=== PATIENT | female | born 1980 | race Caucasian/White ===

== ENCOUNTER → 2017-03-04 | Day surgery (SDC) | payer OTHER ==
[~2017-03-04] VITALS: Ht 167.6 cm; Wt 120.7 kg
[~2017-03-04] MED LIST: AMBIEN5 M1 PO; ATIVAN0.5 M1 PO; ATROVENT HFA12.9 GM; DEXILANT60 M1 PO; ESTROGEN PATCH; FERROUS SULFAT325 M3 PO; FLONASE ALLERG9.9 ML; JENTADUETO XR1 EACH PO; LEVEMIR100 UNIT/1; LITHIUM CARBON300 M5 PO; LYRICA200 M1 PO; MINIPRESS1 MG PO; PATADAY2.5 ML OPH; SEROQUEL XR150 M1 PO; SIMVASTATIN5 M2 PO; SINGULAIR10 M1 PO; SYMBICORT 16010.2 GM INH; TOPROL XL50 M1 PO; VRAYLAR3 MG PO; ZANTAC150 M1 PO
== END ==
LOC: STS 01:37
DX: R35.0 Frequency of micturition (principal)
CPT/HCPCS: J0690

== ENCOUNTER → 2017-03-11 | Day surgery (SDC) | payer OTHER ==
[~2017-03-11] VITALS: Ht 167.6 cm; Wt 120.7 kg
--- NOTE | 2017-03-11 15:14 | Operative Report ---
Operative/Inv Procedure Report Surgery Date: 03/11/17 Name of Procedure: interstim implant stage 1 and 2 Pre-Operative Diagnosis: frequency and nocturia Post-Operative Diagnosis: same Estimated Blood Loss: less than 50ml Surgeon/Dynamometer Tuner: SANDRA RICHARD MD Anesthesia: local monitored anesthesi Implants: interstim implant Complications: none Condition: stable Operative Indication: frequency and nocturia, failed other therapies Operative/Procedure Note Note: An operative dictation on patient Clarissa Lyons. She was identified in the holding area and consented for InterStim implant stage I and 2. She was given the risks benefits and alternatives of the surgery and she wished to proceed. All questions were answered. Patient was taken to the operating room placed on the operating table in the prone position. Once she was optimally positioned she was given light sedation by anesthesia. Timeout was performed prior to this and patient was prepped and draped with chloraprep and given IV antibiotics. Her bony landmarks were used to map out the area of S3 foramen. The fluoroscopy was then used to confirm her landmarks. S3 was easily identified and 2 fingerbreadths above was within the needle was inserted on the patient's left side first. She did feel sensation in her vagina however it was not optimal placement by AP and lateral view in my opinion. As result the right side was attempted. Again she felt in the vaginal area and felt in a better manner according to the patient. As a result the right side was opted to proceed with the implant. The needle was then used to place the guidewire. #15 blade was used to make a stab incision. The dilator was then placed over the guidewire. The lead was then placed with the curved stylette. The lead the was then tested all 4 electrodes sites and the patient had good response in the vaginal area and this was with low settings of the InterStim stimulator. A battery pocket was then created with the 1% lidocaine infiltrated into the superior buttock region on the right side. The T dilator was then used to go from the wire site to the incised pocket site that was created with blunt dissection. The battery was then connected to the lead and then tightened with the hex wrench. The battery was placed into the greater pocket and was tested with the external stimulator. It was seen to be in good working condition with no impedance. The incised pocket was then closed with interrupted 3-0 Vicryl sutures followed by 4-0 Monocryl skin closure. Mastisol was then used on the skin followed by Steri-Strips and Tegaderm dressing the same was done on the stab incision sites in the midline. The sponge and needle count were correct at the end of the case. Patient tolerated the procedure well. Findings: good vaginal sensation on patient's right side with minimal toe and bellow reactions Discharge Disposition: Same Day Admissions
--- NOTE | 2017-03-11 17:18 | RADIOLOGY REPORT ---
EXAMINATION: XR SACRUM AND COCCYX CLINICAL INFORMATION: InterStim stage 1 and 2 COMPARISON: CT of the abdomen and pelvis from 02/24/2016 TECHNIQUE: 2 fluoroscopic intraoperative images were acquired FINDINGS/IMPRESSION: These demonstrate a stimulator device, with electrode array projecting over the anterior sacrum/presacral space on the lateral view and within the left parasagittal pelvis on the frontal view. Please refer to the operative report for details.
== END ==
LOC: STS 02:44
DX: R35.0 Frequency of micturition (principal); R35.1 Nocturia; N39.41 Urge incontinence; J45.909 Unspecified asthma, uncomplicated
CPT/HCPCS: 72220; C1767; C1778; C1787; C1894; J0131; J2250